=== PATIENT | male | born 1935 | race Caucasian/White ===

== ENCOUNTER 2017-12-04 23:27 | Inpatient (IN) | payer OTHER, MEDICARE ==
[~2017-12-04] VITALS: Ht 172.7 cm; Wt 64.7 kg
[~2017-12-04 23:27] MED LIST: AMIODARONE HCL200 MG PO; ASPIR 8181 M1 PO; ASPIR-LOW81 M1 PO; CARVEDILOL25 MG PO; COREG12.5 MG PO; COUMADIN,JANTOVE1 MG PO; COUMADIN2 MG PO; Coreg PO; DIGOXIN125 MCG PO; FUROSEMIDE40 MG PO; LANOXIN,DIGI0.125 MG PO; LASIX40 MG PO; LEVOTHYROXINE50 MCG PO; LISINOPRIL2.5 MG PO; Lasix PO; SIMVASTATIN10 MG PO; SIMVASTATIN20 M1 PO; Zestril,Prinivil PO
[2017-12-05 00:22] LABS: BASOPHIL (%) 0.7 % (0-1); EOSINOPHIL (%) 1.2 % (0-5); EOSINOPHIL COUNT 0.1 K/uL (0-0.3); HEMATOCRIT 30.6 % (38.0-50.0); HEMOGLOBIN 10.1 G/DL (12.5-16.6); IMMATURE GRANULOCYTE (%) 0.2 % (0.0-0.7); LYMPHOCYTE (%) 15.9 % (15-42); LYMPHOCYTE COUNT 0.7 K/uL (1.0-2.8); MCH 32.7 PG (29.0-34.0); MONOCYTE (%) 15.4 % (3-12); MONOCYTE COUNT 0.7 K/uL (0-0.8); NEUTROPHIL (%) 66.6 % (45-76); NEUTROPHIL COUNT 2.8 K/uL (1.8-6.4); PLATELET COUNT 103 K/uL (156-360); RBC DIS.WIDTH-CV 13.2 % (11.8-14.6); RBC DIS.WIDTH-SD 47.8 % (39-53); RED BLOOD COUNT 3.09 M/uL (4.00-5.50); WHITE BLOOD COUNT 4.2 K/uL (4.1-10.2)
[2017-12-05 00:31] LABS: CHLORIDE 101 mEq/L (99-109); SODIUM 132 mEq/L (136-147)
[2017-12-05 00:33] LABS: GLUCOSE 106 mg/dL (70-99)
[2017-12-05 00:37] LABS: CREATININE 1.4 mg/dL (0.6-1.3); GFR ESTIMATE (CALCULATED) 51 mL/min/ (58.99-99999); UREA NITROGEN (BUN) 30 mg/dL (9-23)
[2017-12-05 00:43] LABS: TROP-I INTERPRETATION NEGATIVE; TROPONIN-I 0.01 ng/mL (0.0-0.30)
[2017-12-05 03:47] LABS: ALBUMIN 3.8 g/dL (3.2-4.8)
[2017-12-05 03:50] LABS: TOTAL PROTEIN 6.5 g/dL (6.4-8.3)
[2017-12-05 03:52] LABS: TOTAL BILIRUBIN 0.6 mg/dL (0.0-1.0)
[2017-12-05 03:53] LABS: ALKALINE PHOSPHATASE 87 IU/L (3-129)
[2017-12-05 03:55] LABS: AST (GOT) 32 IU/L (2-34)
[2017-12-05 03:56] LABS: ALT (GPT) 21 IU/L (3-49); DIRECT BILIRUBIN 0.3 mg/dL (0.0-0.3)
[2017-12-05 03:57] LABS: LIPASE 34 U/L (1.0-51.0)
[2017-12-05] MEDS ORDERED: ELIQUIS2.5 MG PO (04:01)
[2017-12-05] MEDS ORDERED: LASIX20 MG PO (04:02)
[2017-12-05] MEDS ORDERED: ALLOPURINOL100 MG PO (04:03)
[2017-12-05] MEDS ORDERED: HYDRALAZINE HCL25 MG PO (04:06)
[2017-12-05 05:30] VITALS: BP 157/73
[2017-12-05] MEDS ORDERED: IRON325 M1 PO (10:10)
[2017-12-05] MEDS ORDERED: VITAMIN D31000 UNI2 PO (10:10)
[2017-12-05 11:02] VITALS: BP 123/81
[2017-12-05 15:09] VITALS: BP 103/50
[2017-12-05 16:26] VITALS: BP 132/76
[2017-12-05 19:29] VITALS: BP 113/56
[2017-12-05 21:30] VITALS: BP 127/70
[2017-12-06] VITALS: BP 100/49
[2017-12-06 03:33] VITALS: BP 112/54
[2017-12-06 06:10] LABS: HEMATOCRIT 28.2 % (38.0-50.0); HEMOGLOBIN 9.2 G/DL (12.5-16.6); MCH 32.2 PG (29.0-34.0); MCHC 32.6 G/DL (30.0-36.0); MCV 98.6 FL (86-99); PLATELET COUNT 91 K/uL (156-360); RBC DIS.WIDTH-CV 13.2 % (11.8-14.6); RBC DIS.WIDTH-SD 47.5 % (39-53); RED BLOOD COUNT 2.86 M/uL (4.00-5.50); WHITE BLOOD COUNT 3.5 K/uL (4.1-10.2)
[2017-12-06 06:33] LABS: CHLORIDE 98 MEQ/L (99-109); CREATININE 1.6 MG/DL (0.6-1.3); GFR ESTIMATE (CALCULATED) 44 mL/min/ (58.99-99999); GLUCOSE 90 mg/dL (70-99); MAGNESIUM 2.1 mg/dl (1.3-2.7); POTASSIUM 4.6 MEQ/L (3.7-5.4); SODIUM 133 MEQ/L (136-147); UREA NITROGEN (BUN) 35 mg/dL (9-23)
[2017-12-06 08:01] VITALS: BP 136/62
[2017-12-06 16:28] VITALS: BP 113/57
[2017-12-07 00:24] VITALS: BP 108/59
[2017-12-07 06:59] LABS: IMM.RETIC FRACTION 10.5 % (3-19); RETIC HGB EQUIVALENT 34.9 (28-36); RETICULOCYTE COUNT 1.4 % (0.5-1.8)
[2017-12-07 07:09] LABS: FIBRINOGEN 227 mg/dL (150-450); INTER. NORMALIZED RATIO 1.6
[2017-12-07 07:30] LABS: CHLORIDE 100 MEQ/L (99-109); CREATININE 1.8 MG/DL (0.6-1.3); GFR ESTIMATE (CALCULATED) 38 mL/min/ (58.99-99999); GLUCOSE 91 mg/dL (70-99); POTASSIUM 4.4 MEQ/L (3.7-5.4); SODIUM 135 MEQ/L (136-147); UREA NITROGEN (BUN) 37 mg/dL (9-23)
[2017-12-07 07:31] LABS: ALBUMIN 3.7 G/DL (3.2-4.8); ALKALINE PHOSPHATASE 74 IU/L (3-129); ALT (GPT) 14 IU/L (3-49); AST (GOT) 25 IU/L (2-34); DIRECT BILIRUBIN 0.3 mg/dL (0.0-0.3); LACTATE DEHYDROGENASE 141 IU/L (20-246); TOTAL BILIRUBIN 1.2 MG/DL (0.0-1.0); TOTAL PROTEIN 6.1 G/DL (6.4-8.3)
[2017-12-07 07:47] VITALS: BP 114/59
[2017-12-07 07:59] LABS: FOLIC ACID (FOLATE) 10.5 NG/ML (5.0-22.0)
[2017-12-07 08:23] LABS: HEMATOCRIT 29.3 % (38.0-50.0); HEMOGLOBIN 9.6 G/DL (12.5-16.6); MCH 32.8 PG (29.0-34.0); MCHC 32.8 G/DL (30.0-36.0); PLATELET COUNT 91 K/uL (156-360); RBC DIS.WIDTH-CV 13.3 % (11.8-14.6); RBC DIS.WIDTH-SD 48.9 % (39-53); RED BLOOD COUNT 2.93 M/uL (4.00-5.50); WHITE BLOOD COUNT 3.7 K/uL (4.1-10.2)
[2017-12-07 08:30] LABS: D-DIMER LATEX NEGATIVE; SCHISTOCYTES NONE SEEN
[2017-12-07 09:45] LABS: ANTI-HEPATITIS B CORE (TOTAL) REACTIVE
[2017-12-07 10:06] LABS: HEPATITIS B SURFACE ANTIGEN Nonreactive; HEPATITIS C ANTIBODY Nonreactive
[2017-12-07 10:07] LABS: HIV-1/2 AB/AG COMBO Nonreactive
[2017-12-07 10:08] LABS: HEPATITIS B SURFACE ANTIBODY REACTIVE
[2017-12-07 11:45] LABS: ANTI-HEPATITIS B CORE (IGM) Nonreactive
[2017-12-07 13:07] LABS: APPEARANCE CLEAR ((CLEAR)); BILIRUBIN NEGATIVE; BLOOD LARGE; COLOR YELLOW ((YELLOW)); GLUCOSE (STRIP) NEGATIVE; KETONES NEGATIVE; LEUKOCYTES NEGATIVE; NITRITE NEGATIVE; PROTEIN (STRIP) NEGATIVE; SPECIFIC GRAVITY 1.005 (1.000-1.030); UROBILINOGEN 0.2 MG/DL (0.2-1.0)
[2017-12-07 13:41] LABS: RED BLOOD CELLS 20-30 /HPF (0-5)
[2017-12-07 13:42] LABS: BACTERIA RARE /HPF; EPITHELIAL CELLS RARE /HPF; MUCUS NONE SEEN /LPF; WHITE BLOOD CELLS 0-5 /HPF (0-5)
[2017-12-07 15:48] VITALS: BP 108/53
[2017-12-07 22:04] VITALS: BP 128/66
[2017-12-08 00:18] VITALS: BP 110/60
[2017-12-08 06:48] LABS: BASOPHIL (%) 0.9 % (0-1); EOSINOPHIL (%) 2.7 % (0-5); EOSINOPHIL COUNT 0.1 K/uL (0-0.3); HEMATOCRIT 28.6 % (38.0-50.0); HEMOGLOBIN 9.3 G/DL (12.5-16.6); IMMATURE GRANULOCYTE (%) 0.3 % (0.0-0.7); LYMPHOCYTE (%) 22.6 % (15-42); LYMPHOCYTE COUNT 0.7 K/uL (1.0-2.8); MCHC 32.5 G/DL (30.0-36.0); MCV 98.3 FL (86-99); MONOCYTE (%) 17.7 % (3-12); MONOCYTE COUNT 0.6 K/uL (0-0.8); NEUTROPHIL (%) 55.8 % (45-76); NEUTROPHIL COUNT 1.8 K/uL (1.8-6.4); PLATELET COUNT 102 K/uL (156-360); RBC DIS.WIDTH-CV 13.1 % (11.8-14.6); RBC DIS.WIDTH-SD 47.5 % (39-53); RED BLOOD COUNT 2.91 M/uL (4.00-5.50); WHITE BLOOD COUNT 3.3 K/uL (4.1-10.2)
[2017-12-08 07:13] LABS: CHLORIDE 97 MEQ/L (99-109); CREATININE 1.7 MG/DL (0.6-1.3); GFR ESTIMATE (CALCULATED) 41 mL/min/ (58.99-99999); GLUCOSE 90 mg/dL (70-99); POTASSIUM 4.6 MEQ/L (3.7-5.4); SODIUM 134 MEQ/L (136-147); UREA NITROGEN (BUN) 34 mg/dL (9-23)
[2017-12-08 08:05] VITALS: BP 115/57
[2017-12-08 10:18] LABS: APPEARANCE CLEAR ((CLEAR)); BILIRUBIN NEGATIVE; BLOOD NEGATIVE; COLOR YELLOW ((YELLOW)); GLUCOSE (STRIP) NEGATIVE; KETONES NEGATIVE; LEUKOCYTES NEGATIVE; NITRITE NEGATIVE; PROTEIN (STRIP) NEGATIVE; SPECIFIC GRAVITY 1.008 (1.000-1.030); UROBILINOGEN 0.2 MG/DL (0.2-1.0)
[2017-12-08] MEDS ORDERED: BUMETANIDE0.5 MG PO (13:51)
== END 2017-12-08 16:26 | disposition home or self-care (01) | DRG 291 ==
LOC: EME 23:27 → EDOF 12-05 03:25 → ENRESERV 12-05 03:27 → CANRESERV 12-05 03:38 → ENRESERV 12-05 03:38 → EDOF 12-05 04:07 → 5SOUTH 12-05 04:07 → EDOF 12-05 04:07 → ENRESERV 12-05 04:12 → 5SOUTH 12-05 05:33 → ENPENDDIS 12-08 14:10 → 5SOUTH 12-08 16:26
PROVIDERS: Emergency Medicine; Internal Medicine Cardiovascular Disease; Internal Medicine Medical Oncology; Physician Assistant; Physician Assistant Medical; Student in an Organized Health Care Education/Training Program
DX: I13.0 Hypertensive heart and chronic kidney disease with heart failure and stage 1 through stage 4 chronic kidney disease, or unspecified chronic kidney disease (principal); E03.9 Hypothyroidism, unspecified; E78.5 Hyperlipidemia, unspecified; M19.021 Primary osteoarthritis, right elbow; I50.23 Acute on chronic systolic (congestive) heart failure; M10.9 Gout, unspecified; E87.1 Hypo-osmolality and hyponatremia; D69.6 Thrombocytopenia, unspecified; I27.20 Pulmonary hypertension, unspecified; N18.3 Chronic kidney disease, stage 3 (moderate); I25.10 Atherosclerotic heart disease of native coronary artery without angina pectoris; D64.9 Anemia, unspecified; I25.5 Ischemic cardiomyopathy; I48.2 Chronic atrial fibrillation; D61.818 Other pancytopenia; Z66 Do not resuscitate; Z86.718 Personal history of other venous thrombosis and embolism; Z86.73 Personal history of transient ischemic attack (TIA), and cerebral infarction without residual deficits; Z95.810 Presence of automatic (implantable) cardiac defibrillator; Z95.1 Presence of aortocoronary bypass graft; I25.2 Old myocardial infarction; Z68.22 Body mass index [BMI] 22.0-22.9, adult; Z85.828 Personal history of other malignant neoplasm of skin
CPT/HCPCS: 71046; 80048; 80076; 81003; 82607; 82746; 83615; 83690; 83735; 83880; 84484; 85025; 85027; 85046; 85378; 85384; 85610; 85730; 86704; 86705; 86706; 86803; 87340; 87389; 93005; 99281; 99285; J1940